=== PATIENT | female | born 1990 | race Caucasian/White ===

== ENCOUNTER 2024-04-20 20:49 | Inpatient (IN) | payer MEDICAID ==
[2024-04-20] MEDS ORDERED: Sodium Chloride 0.9% 2.5 ML Syringe FLUSH PRN (21:09)
[2024-04-20] MEDS ORDERED: Terbutaline 1 MG/ML SDV SUBCUT PRN (21:09)
[2024-04-20] MEDS ORDERED: Sodium Chloride 0.9% 10 ML Syringe FLUSH PRN (21:09)
[2024-04-20] MEDS ORDERED: Misoprostol 200 MCG Tab PO PRN (21:09)
[2024-04-20] MEDS ORDERED: Ondansetron 4 MG/2 ML SDV IVPUSH PRN (21:09)
[2024-04-20] MEDS ORDERED: Carboprost Tromethamine 250 MCG/1 mL Vial IM PRN (21:09)
[2024-04-20] MEDS ORDERED: Lidocaine 1% 50 ML MDV INJECT PRN (21:09)
[2024-04-20] MEDS ORDERED: Sodium Chloride 0.9% 20 ML SDV IV PRN (21:09)
[2024-04-20] MEDS ORDERED: Tranexamic Acid IN NACL,ISO-OS 1,000 MG in Premix Bag 1 BAG IV PRN (21:09)
[2024-04-20] MEDS ORDERED: Methylergonovine 0.2 MG/1 ML Amp IM PRN (21:09)
[2024-04-20] MEDS ORDERED: Butorphanol 2 MG/ML SDV IVPUSH PRN (21:09)
[2024-04-20] MEDS ORDERED: Water For Irrigation,Sterile 1,000 ML Container IRR PRN (21:09)
[2024-04-20] MEDS ORDERED: Oxytocin/0.9 % Sodium Chloride 30 UNIT/500 ML BAG IV SCH (21:15)
[2024-04-20] MEDS: Lactated Ringers 1,000 ML IV SCH (21:25)
[2024-04-20] MEDS ORDERED: ePHEDrine 50 MG/ML SDV IVPUSH PRN ×2 (21:33)
[2024-04-20] MEDS ORDERED: Phenylephrine HCl In 0.9% NaCl 1 MG/10 ML Syringe IVPUSH PRN (21:33)
[2024-04-20 21:54] LABS: HEMATOCRIT 44.5 % (37.0-47.0); HEMOGLOBIN 14.8 g/dL (12.0-16.0); MEAN CORPUSCULAR HEMOGLOBIN 28.8 pg (28.0-32.0); MEAN CORPUSCULAR HGB CONC 33.3 g/dL (32.0-36.0); MEAN CORPUSCULAR VOLUME 86.7 fL (83.0-99.0); MEAN PLATELET VOLUME 10.9 fL (9.4-12.3); PLATELET COUNT,PLT 216 K/uL (150-400); RED BLOOD CELL COUNT 5.13 M/uL (4.10-5.30); WHITE BLOOD CELL COUNT,WBC 14.38 K/uL (3.9-11.3)
[2024-04-20] MEDS: Misoprostol 25 MCG (1/4 of 100 MCG) Tab VAG PRN (22:02)
[2024-04-20] MEDS: Misoprostol 25 MCG (1/4 of 100 MCG) Tab PO PRN (22:05)
[2024-04-21] MEDS: Ropivacaine HCl/PF 400 MG in Premix Bag 1 BAG EPIDUR SCH (15:13)
[2024-04-21 16:34] LABS: APPEARANCE,URINE SLT CLOUDY; BILIRUBIN,URINE NEGATIVE (NEGATIVE); COLOR,URINE YELLOW; GLUCOSE,URINE NEGATIVE (NEGATIVE); KETONES,URINE 40 mg/dL (NEGATIVE); LEUKOCYTE ESTERASE,URINE NEGATIVE (NEGATIVE); NITRITE,URINE NEGATIVE (NEGATIVE); OCCULT BLOOD,URINE MODERATE (NEGATIVE); PROTEIN,URINE 100 mg/dL (NEGATIVE)
[2024-04-21 16:44] LABS: BACTERIA,URINE RARE (NEGATIVE); CALCIUM OXALATE CRYSTALS,URINE RARE (NEGATIVE); EPITHELIAL CELLS,URINE MANY (NONE-FEW); RBC,URINE 25-35 (0-2/HPF)
[2024-04-21] MEDS: Oxytocin/0.9 % Sodium Chloride 30 UNIT/500 ML BAG IV SCH (18:28)
[2024-04-21] MEDS: Acetaminophen 325 MG Tab PO ONE (23:04)
[2024-04-22 00:54] LABS: HEMATOCRIT 39.2 % (37.0-47.0); HEMOGLOBIN 13.6 g/dL (12.0-16.0); MEAN CORPUSCULAR HEMOGLOBIN 29.5 pg (28.0-32.0); MEAN CORPUSCULAR HGB CONC 34.7 g/dL (32.0-36.0); MEAN PLATELET VOLUME 10.7 fL (9.4-12.3); PLATELET COUNT,PLT 210 K/uL (150-400); RED BLOOD CELL COUNT 4.61 M/uL (4.10-5.30); WHITE BLOOD CELL COUNT,WBC 23.69 K/uL (3.9-11.3)
[2024-04-22 01:22] LABS: LYMPHOCYTES ABSOLUTE MAN 1.42 K/uL (1.00-4.80); LYMPHOCYTES PERCENT MAN 6 % (24-44); MONOCYTES ABSOLUTE MAN 1.18 K/uL (0.00-0.80); MONOCYTES PERCENT MAN 5 % (0-8); SEG NEUTROPHILS ABSOLUTE MAN 21.08 K/uL (1.80-7.70); SEG NEUTROPHILS PERCENT MAN 89 % (41-71)
[2024-04-22] MEDS: Ampicillin 2 GM in Sodium Chloride 0.9% 100 ML IV SCH (01:41)
[2024-04-22] MEDS ORDERED: fentaNYL 100 MCG/2 ML SDV ONE (02:25)
[2024-04-22] MEDS ORDERED: Bupivacaine 0.5% 30 ML SDV ONE (02:26)
[2024-04-22] MEDS ORDERED: ceFAZolin 2 GM Vial ONE ×2 (03:44→14:08)
[2024-04-22] MEDS ORDERED: Oxytocin 10 Units/1 ML SDV ONE ×2 (03:45→03:46)
[2024-04-22] MEDS ORDERED: Dexamethasone 4 MG/ML 5 ML MDV ONE (03:45)
[2024-04-22] MEDS ORDERED: Ondansetron 4 MG/2 ML SDV ONE (03:45)
[2024-04-22] MEDS ORDERED: Ropivacaine 0.5% 5 MG/ML 30 ML SDV ONE (03:45)
[2024-04-22] MEDS ORDERED: Morphine PF 10 MG/10 ML SDV ONE (03:46)
[2024-04-22] MEDS ORDERED: Azithromycin 500 MG Vial ONE (04:01)
[2024-04-22] MEDS ORDERED: Metoclopramide 10 MG/2 ML SDV ONE (04:18)
[2024-04-22] MEDS ORDERED: Water For Injection, Sterile 20 ML ONE (04:21)
[2024-04-22] MEDS ORDERED: Tranexamic Acid 1,000 MG/10 ML Vial ONE (04:38)
[2024-04-22] MEDS ORDERED: Calcium Chloride 10% 1 GM/10 ML Syringe ONE (04:41)
[2024-04-22] MEDS ORDERED: Sodium Chloride 0.9% 10 ML Syringe FLUSH PRN (05:36)
[2024-04-22] MEDS ORDERED: Sodium Chloride 0.9% 2.5 ML Syringe FLUSH PRN (05:36)
[2024-04-22] MEDS ORDERED: Naloxone 0.4 MG/ML SDV IVPUSH ONE (05:36)
[2024-04-22] MEDS ORDERED: Measles, Mumps & Rubella Vaccine 0.5 ML SDV SUBCUT ONE (05:36)
[2024-04-22] MEDS ORDERED: Ibuprofen 800 MG Tab PO SCH (05:45)
[2024-04-22] MEDS ORDERED: Acetaminophen 500 MG Tab PO SCH ×2 (05:45→07:00)
[2024-04-22] MEDS ORDERED: Gentamicin 330 MG in Sodium Chloride 0.9% 100 ML IV SCH (05:45)
[2024-04-22] MEDS ORDERED: metroNIDAZOLE/Normal Saline 500 MG in Premix Bag 1 BAG IV SCH (05:45)
[2024-04-22 05:50] LABS: PH,UMBILICAL ARTERIAL 7.265 (7.18-7.38); PH,UMBILICAL VENOUS 7.263 (7.25-7.45)
[2024-04-22] MEDS ORDERED: Ondansetron 4 MG/2 ML SDV IVPUSH PRN ×2 (05:50)
[2024-04-22] MEDS ORDERED: fentaNYL 100 MCG/2 ML SDV IVPUSH PRN (05:50)
[2024-04-22] MEDS ORDERED: Naloxone 0.4 MG/ML SDV IVPUSH PRN (05:50)
[2024-04-22] MEDS ORDERED: HYDROmorphone 1 MG/ML Syringe IVPUSH PRN (05:50)
[2024-04-22] MEDS ORDERED: Albuterol 0.083% 2.5 MG/3 ML Neb Soln NEB PRN (05:50)
[2024-04-22] MEDS ORDERED: ePHEDrine 50 MG/ML SDV IVPUSH PRN (05:50)
[2024-04-22] MEDS ORDERED: diphenhydrAMINE 50 MG/ML SDV IVPUSH PRN (05:50)
[2024-04-22] MEDS ORDERED: Metoclopramide 10 MG/2 ML SDV IVPUSH PRN (05:50)
[2024-04-22] MEDS ORDERED: Acetaminophen/oxyCODONE 325-5 MG Tab PO PRN (05:50)
[2024-04-22] MEDS ORDERED: fentaNYL 50 MCG/ML SDV IVPUSH PRN (05:50)
[2024-04-22] MEDS ORDERED: droPERidol 5 MG/2 ML SDV IVPUSH PRN (05:50)
[2024-04-22] MEDS ORDERED: Morphine 2 MG/ML SYRINGE IVPUSH PRN (05:50)
[2024-04-22] MEDS ORDERED: ceFAZolin 2 GM in Sodium Chloride 0.9% 50 ML IV SCH (06:00)
[2024-04-22] MEDS: dexmedeTOMIDine HCl 200 MCG/2 ML SDV ONE (06:31)
[2024-04-22] MEDS ORDERED: Ketorolac 30 MG/ML SDV IVPUSH SCH (07:00)
[2024-04-22] MEDS: Ketorolac 30 MG/ML SDV IVPUSH SCH ×3 (07:15→20:42)
[2024-04-22] MEDS: metroNIDAZOLE/Normal Saline 500 MG in Premix Bag 1 BAG IV SCH (07:33)
[2024-04-22] MEDS: Acetaminophen 1,000 MG in Premix Bag 1 BAG IV SCH ×2 (09:44→20:44)
[2024-04-22] MEDS ORDERED: Sodium Chloride 0.9% 100 ML ONE (14:11)
[2024-04-22] MEDS ORDERED: Sodium Chloride 0.9% 50 ML ONE (14:14)
[2024-04-22] MEDS: ceFAZolin 2 GM in Sodium Chloride 0.9% 50 ML IV SCH ×2 (14:20→22:36)
[2024-04-22] MEDS: Docusate Sodium 100 MG Cap PO SCH (14:45)
[2024-04-23] MEDS: Gentamicin 330 MG in Sodium Chloride 0.9% 100 ML IV SCH (02:35)
[2024-04-23] MEDS: metroNIDAZOLE/Normal Saline 500 MG in Premix Bag 1 BAG IV SCH (03:45)
[2024-04-23] MEDS ORDERED: Ibuprofen 800 MG Tab PO SCH (06:00)
[2024-04-23 06:17] LABS: HEMATOCRIT 30.8 % (37.0-47.0); HEMOGLOBIN 10.2 g/dL (12.0-16.0); MEAN CORPUSCULAR HEMOGLOBIN 29.4 pg (28.0-32.0); MEAN CORPUSCULAR HGB CONC 33.1 g/dL (32.0-36.0); MEAN CORPUSCULAR VOLUME 88.8 fL (83.0-99.0); MEAN PLATELET VOLUME 10.8 fL (9.4-12.3); PLATELET COUNT,PLT 206 K/uL (150-400); RED BLOOD CELL COUNT 3.47 M/uL (4.10-5.30); WHITE BLOOD CELL COUNT,WBC 24.34 K/uL (3.9-11.3)
[2024-04-23 06:46] LABS: LYMPHOCYTES ABSOLUTE MAN 2.19 K/uL (1.00-4.80); LYMPHOCYTES PERCENT MAN 9 % (24-44); MONOCYTES ABSOLUTE MAN 0.97 K/uL (0.00-0.80); MONOCYTES PERCENT MAN 4 % (0-8); SEG NEUTROPHILS ABSOLUTE MAN 21.18 K/uL (1.80-7.70); SEG NEUTROPHILS PERCENT MAN 87 % (41-71)
[2024-04-23] MEDS: Ibuprofen 800 MG Tab PO SCH (12:16)
[2024-04-23] MEDS: oxyCODONE 5 MG Tab PO PRN (14:07)
[2024-04-23] MEDS: Acetaminophen 500 MG Tab PO SCH (15:49)
[2024-04-24 05:49] LABS: HEMATOCRIT 30.4 % (37.0-47.0); MEAN CORPUSCULAR HEMOGLOBIN 29.4 pg (28.0-32.0); MEAN CORPUSCULAR HGB CONC 32.9 g/dL (32.0-36.0); MEAN CORPUSCULAR VOLUME 89.4 fL (83.0-99.0); MEAN PLATELET VOLUME 10.7 fL (9.4-12.3); PLATELET COUNT,PLT 211 K/uL (150-400)
[2024-04-24] MEDS ORDERED: Lanolin 100% Cream 7 GM Tube ONE (18:01)
[2024-04-24] MEDS ORDERED: Lanolin 100% Cream 7 GM Tube TOP PRN (18:59)
== END 2024-04-24 18:30 | disposition home or self-care (01) | DRG 786 ==
LOC: MW.OBCHECK 20:49 → MW.OB 20:52 → MW.OBCHECK 21:09 → OBSVTOIN 04-22 04:34 → MW.OB 04-22 12:08
PROVIDERS: ADMIT Obstetrics & Gynecology; ATTEND Obstetrics & Gynecology Obstetrics
PROC: 10D00Z1 Extraction of Products of Conception, Low, Open Approach (ICD-10-PCS; principal; 2024-04-22 04:08)
DX: O48.0 Post-term pregnancy (principal); O41.1230 Chorioamnionitis, third trimester, not applicable or unspecified; O99.214 Obesity complicating childbirth; O76 Abnormality in fetal heart rate and rhythm complicating labor and delivery; O77.0 Labor and delivery complicated by meconium in amniotic fluid; E66.01 Morbid (severe) obesity due to excess calories; Z37.0 Single live birth; Z3A.41 41 weeks gestation of pregnancy
CPT/HCPCS: 01967; 01968; 36415; 51702; 59025; 64488; 81001; 82803; 85025; 85027; 86592; 86850; 86900; 86901; A9270-GY; J0131; J0290; J0456; J0665; J0690; J1100; J1580; J1836; J1885; J2274; J2405; J2590; J2765; J2795; J3010; J3490; J7120

== ENCOUNTER 2024-05-19 18:11 | Emergency (ER) | payer MEDICAID ==
[2024-05-19 18:59] LABS: BASOPHILS ABSOLUTE AUTO 0.04 K/uL (0.00-0.20); BASOPHILS PERCENT AUTO 0.5 % (0.0-1.0); EOSINOPHILS ABSOLUTE AUTO 0.36 K/uL (0.00-0.45); EOSINOPHILS PERCENT AUTO 4.5 % (0.0-6.0); HEMATOCRIT 37.6 % (37.0-47.0); HEMOGLOBIN 12.3 g/dL (12.0-16.0); IMMATURE GRAN ABSOLUTE AUTO 0.02 K/uL (0.00-0.05); IMMATURE GRAN PERCENT AUTO 0.2 % (0.0-0.4); LYMPHOCYTES ABSOLUTE AUTO 2.17 K/uL (1.00-4.80); LYMPHOCYTES PERCENT AUTO 26.9 % (24.0-44.0); MEAN CORPUSCULAR HEMOGLOBIN 28.7 pg (28.0-32.0); MEAN CORPUSCULAR HGB CONC 32.7 g/dL (32.0-36.0); MEAN CORPUSCULAR VOLUME 87.9 fL (83.0-99.0); MEAN PLATELET VOLUME 10.3 fL (9.4-12.3); MONOCYTES ABSOLUTE AUTO 0.62 K/uL (0.00-0.80); MONOCYTES PERCENT AUTO 7.7 % (0.0-8.0); NEUTROPHILS ABSOLUTE AUTO 4.87 K/uL (1.80-7.70); NEUTROPHILS PERCENT AUTO 60.2 % (41.0-71.0); PLATELET COUNT,PLT 286 K/uL (150-400); RED BLOOD CELL COUNT 4.28 M/uL (4.10-5.30); WHITE BLOOD CELL COUNT,WBC 8.08 K/uL (3.9-11.3)
[2024-05-19] MEDS: Sodium Chloride 0.9% 1,000 ML IV ONE (19:00)
[2024-05-19] MEDS: Alum Hydro/Mag Hydro/Simeth XS 15 ML, Lidocaine 2% 5 ML PO ONE (19:04)
[2024-05-19 19:21] LABS: A/G RATIO 0.9 (0.9-1.6); ALBUMIN 3.2 g/dL (3.4-5.0); BILIRUBIN TOTAL 0.3 mg/dL (0.2-1.0); CALCIUM 8.6 mg/dL (8.5-10.1); EST CRCL DRUG DOSING (CG) 58.01 mL/min; PROTEIN TOTAL,TP 6.8 g/dL (6.4-8.2)
[2024-05-19 20:11] LABS: APPEARANCE,URINE CLEAR; BILIRUBIN,URINE NEGATIVE (NEGATIVE); COLOR,URINE YELLOW; GLUCOSE,URINE NEGATIVE (NEGATIVE); KETONES,URINE NEGATIVE (NEGATIVE); LEUKOCYTE ESTERASE,URINE NEGATIVE (NEGATIVE); NITRITE,URINE NEGATIVE (NEGATIVE); OCCULT BLOOD,URINE SMALL (NEGATIVE); PROTEIN,URINE NEGATIVE (NEGATIVE); UROBILINOGEN,URINE 0.2 EU/dL (<2.0)
[2024-05-19 20:30] LABS: BACTERIA,URINE FEW (NEGATIVE); EPITHELIAL CELLS,URINE RARE (NONE-FEW); RBC,URINE 0-2 (0-2/HPF); WBC,URINE 0-1 (0-5/HPF)
== END 2024-05-19 21:04 | disposition home or self-care (01) ==
LOC: MW.ED 18:11
DX: K52.9 Noninfective gastroenteritis and colitis, unspecified (principal); E66.9 Obesity, unspecified; Z68.37 Body mass index [BMI] 37.0-37.9, adult; Z75.8 Other problems related to medical facilities and other health care
CPT/HCPCS: 36415; 74018; 76705; 80053; 81001; 85025; 96360; 99284; A9270; J7030; 99283

== ENCOUNTER 2024-11-27 16:43 | Emergency (ER) | payer OTHER, MEDICAID ==
[2024-11-27 18:30] LABS: BASOPHILS ABSOLUTE AUTO 0.05 K/uL (0.00-0.20); BASOPHILS PERCENT AUTO 0.4 % (0.0-1.0); EOSINOPHILS PERCENT AUTO 2.6 % (0.0-6.0); HEMATOCRIT 42.3 % (37.0-47.0); HEMOGLOBIN 14.1 g/dL (12.0-16.0); IMMATURE GRAN ABSOLUTE AUTO 0.04 K/uL (0.00-0.05); IMMATURE GRAN PERCENT AUTO 0.3 % (0.0-0.4); LYMPHOCYTES ABSOLUTE AUTO 2.92 K/uL (1.00-4.80); LYMPHOCYTES PERCENT AUTO 25.1 % (24.0-44.0); MEAN CORPUSCULAR HEMOGLOBIN 28.4 pg (28.0-32.0); MEAN CORPUSCULAR HGB CONC 33.3 g/dL (32.0-36.0); MEAN CORPUSCULAR VOLUME 85.3 fL (83.0-99.0); MEAN PLATELET VOLUME 10.1 fL (9.4-12.3); MONOCYTES ABSOLUTE AUTO 0.77 K/uL (0.00-0.80); MONOCYTES PERCENT AUTO 6.6 % (0.0-8.0); NEUTROPHILS ABSOLUTE AUTO 7.56 K/uL (1.80-7.70); PLATELET COUNT,PLT 309 K/uL (150-400); RED BLOOD CELL COUNT 4.96 M/uL (4.10-5.30); WHITE BLOOD CELL COUNT,WBC 11.64 K/uL (3.9-11.3)
[2024-11-27 18:44] LABS: INR 0.99 (0.86-1.11)
[2024-11-27 18:58] LABS: A/G RATIO 0.9 (0.9-1.6); ALANINE AMINOTRANSFERASE,ALT 27 IU/L (14-63); ALBUMIN 3.7 g/dL (3.4-5.0); ALKALINE PHOSPHATASE 91 U/L (46-116); ASPARTATE AMNIOTRANSFERASE,AST 21 IU/L (15-37); BILIRUBIN TOTAL 0.4 mg/dL (0.2-1.0); BLOOD UREA NITROGEN,BUN 5 mg/dL (7.0-18.0); CALCIUM 9.2 mg/dL (8.5-10.1); CARBON DIOXIDE,CO2 26.4 mmol/L (21.0-32.0); CHLORIDE,CL 103 mmol/L (98-107); CREATININE 0.6 mg/dL (0.6-1.0); GLUCOSE RANDOM 89 mg/dL (74-106); POTASSIUM,K 3.9 mmol/L (3.5-5.1); PROTEIN TOTAL,TP 7.7 g/dL (6.4-8.2); SODIUM,NA 139 mmol/L (136-145)
[2024-11-27 19:00] LABS: ESTIMATED GFR 121 mL/min (>60)
[2024-11-27] MEDS: Sodium Chloride 0.9% 1,000 ML IV ONE (19:27)
[2024-11-27] MEDS: Ketorolac 30 MG/ML SDV IVPUSH ONE (19:27)
== END 2024-11-27 20:29 | disposition home or self-care (01) ==
LOC: MW.ED 16:43
DX: S30.1XXA Contusion of abdominal wall, initial encounter (principal); E66.9 Obesity, unspecified; Z79.899 Other long term (current) drug therapy; Y04.2XXA Assault by strike against or bumped into by another person, initial encounter
CPT/HCPCS: 36415; 80053; 84703; 85025; 85610; 96361; 96374; 99284; J1885; J7030